=== PATIENT | male | born 1965 | race Caucasian/White ===

== ENCOUNTER 2016-03-30 14:17 | Emergency (ER) | payer BC ==
[~2016-03-30] VITALS: Ht 185.4 cm; Wt 112.2 kg
[2016-03-30 14:24] VITALS: TEMP 36.6; Ht 185.4 cm; Wt 112.2 kg
[2016-03-30] MEDS ORDERED: DEXAMETHASONE SOD INJ 4 MG/ML VIAL IV STA (15:18)
[2016-03-30] MEDS ORDERED: DiphenhydrAMINE HCL 50 MG/ML VIAL IV STA (15:18)
[2016-03-30] MEDS ORDERED: hydrOXYzine HCL IM SOLN 50 MG/ML 1 ML VIAL IM STA (15:18)
[2016-03-30] MEDS ORDERED: AMOX500T PO (15:45)
[2016-03-30] MEDS ORDERED: FAMO20TA11 PO (15:45)
[2016-03-30] MEDS ORDERED: LISI5TAB PO (15:45)
[2016-03-30] MEDS ORDERED: PRED10TA PO (17:18)
[2016-03-30] MEDS ORDERED: HYDR1CAP85 PO (17:18)
--- NOTE | 2016-03-30 17:26 | EMERGENCY ROOM VISIT NOTE ---
History First contact with patient: 14:40 Chief Complaint: ALLERGIC REACTION Stated Complaint: NOT SLEEPING, RASHES, ALLER. REACTION, WEAK, DIZZY History of Present Illness The patient is a 50 year old male who presents to the Emergency Room with complaints of an itchy rash all over his body. He reports that the rash has been intermittent in nature, and started on Monday, 2 days ago. The patient reports that he developed bilateral ear discomfort last Monday. He was seen by his PCP on Monday and given a prescription for Augmentin. The patient reports that he has taken amoxicillin in the past without any adverse reaction. The patient reports that he started to develop an itchy rash on the abdomen on Monday. The patient reports that the rash comes and goes in different areas of his body. He has not noticed any swelling of the face, lips/tongue or throat. The patient reports that he was seen at the [facility] emergency department last evening. He reports that an IV was established, and received IV Benadryl and a steroid. When his rash returned, he was given additional IV Benadryl, and discharged with a prescription for prednisone 40 mg daily 5 days. The patient reports that the rash returned last night with severe itching. The patient reports that he noticed the itching was worse this morning while showering. The patient comes to our facility for further evaluation. The patient reports that he was started on lisinopril 15 mg daily for hypertension, along with Zyrtec. These prescriptions were written on . The also reports that he was helping a neighbor with a brush pile this past weekend. She is wondering if he could've potentially gotten into some type of a poisonous plant. The patient denies using any new topical products, detergents or lotions. The patient does not recall eating any new foods or drinks. He has had no recent fever or chills. The patient denies any pain, but again complains of severe itch. Review of Systems HEENT: Denies dizziness or visual problems. Denies difficulty swallowing or oral lesions. PULMONARY: Denies cough, shortness of breath, sputum production or hemoptysis. CARDIOVASCULAR: Denies chest pain, palpitations, dyspnea on exertion, orthopnea or peripheral edema. GASTROINTESTINAL: Denies diarrhea, constipation, nausea, vomiting, or abdominal pain. GENITOURINARY: Denies dysuria, frequency, urgency or nocturia. NEUROLOGIC: Denies history of epilepsy, CVA, TIA or chronic headaches. MUSCULOSKELETAL: Denies history of joint tenderness/swelling. SKIN: Denies rashes or lesions. PSYCHIATRIC: Denies history of depression or mental illness. ENDOCRINE: Denies history of diabetes or thyroid disorders. Past Medical/Surgical History Medical Problems: (1) Esophageal Reflux (2) Hypertension (3) Kidney stones Surgical Problems: (1) History of tonsillectomy Family History No significant family history Social History Smoking Status: Never Smoker Alcohol Use: none Marital Status: Occupation Status: employed Current/Historical Medications Scheduled Amoxicillin & Pot Clavulanate (Augmentin 500MG), 500 MG PO Q8H Famotidine (Pepcid), 20 MG PO BID Lisinopril (Prinivil), 5 MG PO DAILY Prednisone Tab (Prednisone), 0 PO DAILY Scheduled PRN Hydroxyzine Pamoate (Vistaril), 25-50 MG PO Q6H PRN for pruritus Allergies Coded Allergies: No Known Allergies (Unverified , 03/30/16) Physical Exam Vital Signs Date Time Temp Pulse Resp B/P Pulse Ox O2 Delivery O2 Flow Rate FiO2 03/30/16 16:21 87 18 145/92 94 Room Air 03/30/16 14:27 96 Room Air 03/30/16 14:24 36.6 94 18 138/88 95 Room Air Physical Exam CONSTITUTIONAL: Healthy and well nourished. Alert and oriented X 3 with positive affect. The patient appears in moderate discomfort from itch. HEENT: Normocephalic, atraumatic. Pupils equal, round and reactive. Ears and nares are clear, showing no evidence for TM bulging, erythema, air-fluid levels or purulent effusion. Bony landmarks and light reflexes are visible. No tenderness to palpation or percussion of the frontal or maxillary sinuses. No rhinorrhea. OROPHARYNX: No evidence for angioedema. No posterior pharyngeal erythema, tonsillar hypertrophy or exudates. NECK: Full active range of motion without discomfort. No nuchal rigidity. RESPIRATORY: Clear to auscultation bilaterally with no wheezing, crackles, rhonchi or stridor. CARDIOVASCULAR: Regular rate and rhythm with no murmurs, rubs or gallops. GASTROINTESTINAL: Bowel sounds present in all quadrants. Soft and nontender to palpation. MUSCULOSKELETAL: Full range of motion of all joints without discomfort. INTEGUMENTARY: Examination shows a widespread erythematous rash that blanches with pressure. No vesicles, pustules or desquamation. No excoriations noted. NEUROLOGIC: No focal neurologic deficits noted. Medical Decision & Procedures Medications Administered Medications (Trade) Dose Ordered Sig/Carla Route Start Time Stop Time Status Last Admin Dose Admin Diphenhydramine HCl (Benadryl Inj) 50 mg NOW STAT IV 03/30/16 15:18 03/30/16 15:20 DC 03/30/16 15:32 50 MG Hydroxyzine HCl (Vistaril IM) 50 mg NOW STAT IM 03/30/16 15:18 03/30/16 15:20 DC 03/30/16 15:42 50 MG Dexamethasone Sodium Phosphate (Decadron Inj) 10 mg NOW STAT IV 03/30/16 15:18 03/30/16 15:20 DC 03/30/16 15:36 10 MG ED Course Patient history and physical exam were performed. Nurse's notes were reviewed. Vital signs were reviewed and were normal. I did discuss several different possibilities/etiologies for the patient's urticaria. As the rash has been intermittent, the patient was advised that this is not likely a drug eruption/ drug allergy. However, I did suggest that he follow-up with his PCP to discuss further future use of penicillin, amoxicillin and Augmentin. I also explained that these symptoms could also be secondary to a virus. The patient denies eating or drinking any new products, but was also advised that this could be an allergy to something that has recent he been ingested. The patient has also been working outdoors lately, and although the patient could have possibly been exposed to poison byron, I also explained that that rash is constant and not intermittent in nature. Regardless, I do feel that further treatment is warranted today to help the patient with his itch. IV access was established after discussing IM versus IV treatment. The patient was administered Benadryl 50 mg and Decadron 10 mg IVP. He was also administered Vistaril 50 mg IM. The patient reports significant relief of his symptoms. He was also administered normal saline 500 mL bolus. Trial ambulation was successful, and the patient denied any symptoms at the time of discharge. Additional suggestions for itch control were provided with the patient. He was encouraged to ache Benadryl and Zantac for baseline relief. The patient was provided a prescription for hydroxyzine as needed. I also elected to place the patient on a longer prednisone taper as opposed to a burst treatment which may have been started at too low of a dose. The patient was also encouraged to keep cool and avoid hot showers. He was also encouraged to intermittently apply ice to "hot spots". The patient was instructed to follow-up with his PCP within the next few days for reassessment. Return to the emergency department for any further uncontrollable symptoms. The patient was very happy with plan of care and symptomatic relief, and was discharged with his . Medical Decision See previous section Impression Primary Impression: Urticaria Departure Information Prescriptions Hydroxyzine Pamoate (VISTARIL) 25 Mg Cap 25-50 MG PO Q6H Y for pruritus, #30 CAP Prov: Sergio Strong PA 03/30/16 Prednisone Tab (PREDNISONE) 10 Mg Tab 0 PO DAILY, #72 TAB 80 mg daily 2 days, then 70 mg daily 2 days, then 60 mg daily 2 days, then 50 mg daily 2 days, then 40 mg daily 2 days, then 30 mg daily 2 days, then 20 mg daily 2 days, then 10 mg daily 2 days. Prov: Sergio Strong PA 03/30/16 Referrals Toni Castillo M.D. (PCP) Patient Instructions My [facility]
[2016-03-30 17:30] VITALS: BP 133/88; PULSE 89; O2SAT 98
== END 2016-03-30 17:30 | disposition home or self-care (01) ==
LOC: C.EDB 14:20 → C.EDD 17:30
DX: L50.9 Urticaria, unspecified (principal); K21.9 Gastro-esophageal reflux disease without esophagitis; I10 Essential (primary) hypertension